=== PATIENT | male | born 1995 | race Caucasian/White ===

== ENCOUNTER 2018-01-22 10:59 | Emergency (ER) | payer MEDICAID, OTHER ==
[~2018-01-22] VITALS: Ht 177.8 cm; Wt 93.0 kg
[2018-01-22 11:13] VITALS: BP 129/80
== END 2018-01-22 14:56 | disposition home or self-care (01) ==
LOC: ED 13:50
DX: S16.1XXA Strain of muscle, fascia and tendon at neck level, initial encounter (principal); W18.30XA Fall on same level, unspecified, initial encounter; Y93.89 Activity, other specified; Y99.8 Other external cause status; Y92.410 Unspecified street and highway as the place of occurrence of the external cause
CPT/HCPCS: 72125; 99284

== ENCOUNTER 2018-01-28 21:21 | Emergency (ER) | payer OTHER ==
[~2018-01-28] VITALS: Ht 177.8 cm; Wt 95.0 kg
[2018-01-28 21:24] VITALS: BP 131/86
[2018-01-28] MEDS ORDERED: LORazepam 1MG TABLET PO ONE (22:00)
[2018-01-28] MEDS ORDERED: LORazepam 1MG TABLET ONE (22:11)
== END 2018-01-28 23:03 | disposition home or self-care (01) ==
LOC: ED 22:10
DX: S16.1XXA Strain of muscle, fascia and tendon at neck level, initial encounter (principal); F41.1 Generalized anxiety disorder; R06.4 Hyperventilation; M62.830 Muscle spasm of back; Z87.891 Personal history of nicotine dependence; W19.XXXA Unspecified fall, initial encounter; Y93.89 Activity, other specified; Y92.89 Other specified places as the place of occurrence of the external cause; Y99.8 Other external cause status
CPT/HCPCS: 93005; 99284